=== PATIENT | female | born 1970 | race Two or more races ===

== ENCOUNTER 2021-07-29 08:02 | Emergency (ER) | payer OTHER ==
[~2021-07-29] VITALS: Ht 167.6 cm; Wt 75.7 kg
[2021-07-29] MEDS ORDERED: KETOROLAC TROMETH 60MG/2ML VIAL IM ONE (08:15)
[2021-07-29 08:17] VITALS: BP 123/75
[2021-07-29] MEDS ORDERED: IBUP800T27 PO (08:39)
[2021-07-29] MEDS ORDERED: METH750T22 PO (08:39)
== END 2021-07-29 09:33 | disposition home or self-care (01) ==
LOC: ER 08:02
DX: S46.911A Strain of unspecified muscle, fascia and tendon at shoulder and upper arm level, right arm, initial encounter (principal); S50.11XA Contusion of right forearm, initial encounter; V43.52XA Car driver injured in collision with other type car in traffic accident, initial encounter; Y93.89 Activity, other specified; Y92.488 Other paved roadways as the place of occurrence of the external cause; Y99.8 Other external cause status
CPT/HCPCS: 73010; 73090; 96372; 99284; J1885